=== PATIENT | female | born 1970 | race Caucasian/White ===

== ENCOUNTER → 2021-04-15 02:16 | Outpatient (CLI) | payer BC, SELFPAY ==
[2021-04-16 14:39] LABS: SARS-CoV-2 RNA PCR Negative
== END ==
PROVIDERS: PCP Family Medicine; Visit Provider Podiatrist Foot & Ankle Surgery
DX: Z01.812 Encounter for preprocedural laboratory examination (principal); Z20.822 Contact with and (suspected) exposure to COVID-19
CPT/HCPCS: C9803; U0003; U0005

== ENCOUNTER 2021-04-18 02:08 | Day surgery (SDC) | payer BC, SELFPAY ==
[2021-04-10 08:12] VITALS: BMI 29.8
[2021-04-18] VITALS (8 sets, daily range): BP systolic 89–120; BP diastolic 62–87; PULSE 48–80; RESP 8–17; TEMP 36.2–36.9; O2SAT 98–100; BMI 30.3
--- NOTE | 2021-04-18 06:42 | WPDANESEPPF ---
Anes - Initial Pre Proc Eval Procedure: Operation Date: 04/18/21 07:30 Proposed Procedures p Partial Plantar Fasciectomy Right Foot - Warren Arguelles JR, MD Date/Time: 04/18/21 06:42 Surgeon: Warren Arguelels JR, MD Pre Op Diagnosis: plantar fascitis right foot Patient Data Age: 50 Gender: F Height: 1.5 m Weight: 68.2 kg Allergies Allergy/AdvReac Type Severity Reaction Status Date / Time latex Allergy Redness of Verified 04/18/21 06:19 Skin penicillin G Allergy Anaphylaxis Verified 04/18/21 06:19 Home Medications Medication Instructions Recorded Confirmed Type ascorbate calcium (vitamin C) 1,000 mg PO DAILY 04/10/21 04/18/21 History biotin 1,000 mcg PO DAILY 04/10/21 04/18/21 History cholecalciferol (vitamin D3) 25 mcg PO DAILY 04/10/21 04/18/21 History cyanocobalamin (vitamin B-12) 1,000 mcg PO DAILY 04/10/21 04/18/21 History Patient hx anesthesia problems: post op nausea/vomiting Family hx anesthesia problems: none [facility] Past Medical History Medical History (Updated 04/18/21 @ 06:43 by Francis Kumar MD) Obesity Surgical History Surgical History (Updated 04/18/21 @ 06:43 by Francis Kumar MD) History of section Social History Social History Smoking status: Never smoker Alcohol intake: current Drinks per week: 2 Substance use: never Living arrangements: with family Additional living arrangements comments: [facility] Spiritual care concerns: No Anes - Eval Final PreProcedure Day of Procedure 04/18/21 06:42 Patient weight: obese Heart: regular rate and rhythm Lungs: clear to auscultation Airway: Mallampati scale class 1 Neurological: alert and oriented Last oral intake: >/= 8 hours ASA classification: II Emergent: no Anesthetic plan: proceed Anesthesia type and monitoring: general LMA and standard monitoring Informed Consent: The patient's anesthetic plan and its attendant risks and benefits were discussed with the patient/family/POA. Questions were solicited and answers provided to the satisfaction of the patient/family/POA.
[2021-04-18] MEDS: LACTATED RINGERS 1,000 ML 30 ML IV CONT (06:59)
[2021-04-18] MEDS: SCOPOLAMINE 1.5 MG PATCH TRANSDERM (07:02)
--- NOTE | 2021-04-18 07:21 | WPDHPUPDATE1 ---
History and Physical Update Update Date/Time: 04/18/21 07:21 History and Physical has been reviewed, including an updated exam of the patient. There are NO changes in the patient's condition. Risks, benefits, and alternatives have been discussed and questions answered. Patient agrees to proceed with procedure.
[2021-04-18] MEDS: CLINDAMYCIN 900 MG/D5W 50 ML 900 MG/50 ML PIGGYBACK 50 MG IVPB (07:30)
[2021-04-18] MEDS: LIDOCAINE HCL 2% LOCAL INJ 20 ML VIAL 10 ML INFILTRATE (07:58)
--- NOTE | 2021-04-18 08:26 | P.OP_ITS ---
Procedure Note - Detailed Date of Procedure 04/18/21 Pre-op Diagnosis plantar fascitis right foot Post-op Diagnosis same Procedure Performed Partial plantar faciectomy right foot Surgeon Warren Arguelles JR, AUDIEM Anesthesia general and local Indications Chronic recalcitrant inferior right heel pain Description of Procedure Under mild sedation, the patient was brought in to the operating room, placed on the operating table in the supine position. A pneumatic ankle tourniquet was placed about the patient's ankle. Following general anesthesia, local anesthesia was obtained about the affected lower extremity utilizing 20 mL of a one to mix of 2% Lidocaine plain and 0.5% Marcaine plain to the tibial nerve. The foot was then scrubbed, prepped, and draped in the usual aseptic manner. An Esmarch bandage was then used to exsanguinate the patient's foot and the pneumatic ankle tourniquet was then inflated. Next, an incision was made starting distal to the medial tubercle of the calcaneus extending distally 3cm. All bleeders were cauterized as necessary. Next the dissection was continued down to the plantar fascia it was exposed medially and laterally with [place] retractors. Two thirds of the medial plantar fascia was transected and a 4mm portion was also cut and discarded. The wound site was flushed with sterile saline. The deep subcutaneous tissue was reapproximated with 3.0 Vicryl and the skin was reapproximated with 2.0 Prolene and 3.0 Prolene in Vertical mattress and Simple interrupted suture technique. Upon completion of the procedure, the plantar incision was dressed with adaptic, 4x4 gauze, kerlix and coban. The pneumatic ankle tourniquet was then deflated and a prompt hyperemic response was noted to all digits of the affected foot. A CAM Walker boot was then applied. The patient did very well with the procedure and the anesthesia. The patient was transferred to the recovery room with vital signs stable and vascular status intact to all toes of the affected foot. Following a period of postoperative monitoring, the patient will be discharged home on the following written and oral postoperative instructions: 1. The patient should keep the dressing clean, dry, and intact. Use a cast protector bag with showers. 2. The patient will be strictly protected weight bearing with CAM walker boot. 3. Patient should ice and elevate the affected foot when at rest. 4. The patient is to contact Dr. Arguelles for all postop care and if any problems arise. 5. Prescriptions were written for Percocet 5/325 dispensed 40 to be taken 1 p.o. q.4-6 hours as needed for severe pain. Estimated Blood Loss -1.0
[2021-04-18 09:24] LABS: Glucose Point of Care 85 mg/dl (65-105)
--- NOTE | 2021-04-18 10:13 | SUR.PHASEII ---
Patient is to take 325mg aspirin daily for 2 weeks starting tomorrow instead of the xarelto per Dr. Arguelles.
== END 2021-04-18 10:02 | disposition home or self-care (01) ==
PROVIDERS: PCP Family Medicine; Visit Provider Podiatrist Foot & Ankle Surgery
PROC: (CPT 28119; principal; 2021-04-18 07:30)
DX: M72.2 Plantar fascial fibromatosis (principal); M25.571 Pain in right ankle and joints of right foot; E66.9 Obesity, unspecified; Z68.30 Body mass index [BMI] 30.0-30.9, adult
CPT/HCPCS: 28060; 82948; A9270; C9290; J1100; J1200; J2250; J2405; J2704; J3010; J7120

== ENCOUNTER 2025-09-27 08:40 | Emergency (ER) | payer OTHER, SELFPAY ==
--- NOTE | 2025-09-27 08:45 | ED.FEMALEGU ---
HPI - Female Genitourinary General Chief complaint: Urogenital-Female Stated complaint: UTI Time Seen by Provider: 09/27/25 08:45 Source: patient Mode of arrival: ambulatory Limitations: no limitations History of Present Illness HPI Narrative: patient is a 55-year-old female who presents with frequency and burning with urination for 4 days. Has been drinking increased amount of water and cranberry juice. Patient has also been taking azo. Denies any fever, chills, nausea, vomiting, diarrhea, low back pain MD elicited complaint: dysuria Related Data Home Medications ?Medication ?Instructions ?Recorded ?Confirmed ?Last Taken ?Type ascorbate calcium (vitamin C) 500 1,000 mg PO DAILY 04/10/21 04/18/21 04/15/21 History mg capsule biotin 1,000 mcg chewable tablet 1,000 mcg PO DAILY 04/10/21 04/18/21 04/15/21 History cholecalciferol (vitamin D3) 25 25 mcg PO DAILY 04/10/21 04/18/21 04/15/21 History mcg (1,000 unit) chewable tablet cyanocobalamin (vitamin B-12) 500 1,000 mcg PO DAILY 04/10/21 04/18/21 04/15/21 History mcg chewable tablet Allergies Allergy/AdvReac Type Severity Reaction Status Date / Time latex Allergy Redness of Verified 04/18/21 06:19 Skin penicillin G Allergy Anaphylaxis Verified 04/18/21 06:19 Review of Systems Review of Systems: All systems reviewed & are unremarkable except as noted in HPI and below Constitutional: Constitutional: Denies chills, Denies fever(s), Denies headache(s), Denies malaise and Denies weakness Eyes: Eyes: Denies change in vision, Denies eye discharge and Denies irritation ENT: Denies otalgia, Denies headache(s), Denies nasal congestion, Denies nasal discharge, Denies sinus pain and Denies sore throat Cardiovascular: Cardiovascular: Denies chest pain, Denies edema, Denies palpitations and Denies dyspnea Respiratory: Respiratory: Denies cough and Denies dyspnea Gastrointestinal: Gastrointestinal: Denies abdominal pain, Denies diarrhea, Denies nausea and Denies vomiting Genitourinary: Genitourinary: Denies hematuria, Reports nocturia, Reports dysuria and Denies flank pain Musculoskeletal: Musculoskeletal: Denies back pain and Denies numbness Integumentary/Breasts: Skin/Breast: Denies pruritus and Denies rash Neurologic: Denies headache(s), Denies numbness and Denies weakness Psychiatric: Psychiatric: Reports no additional psychiatric complaints Endocrine: Endocrine: Denies palpitations PMFSH Past Medical History Medical History Obesity Surgical History Surgical History History of section Social History Social History Smoking status: Never smoker Alcohol intake: current Drinks per week: 2 Substance use: never Living arrangements: with family [facility] Spiritual care concerns: No Comments At time of signature, agree with nursing past medical, surgical, social and family history. There is no relevant family history pertinent to the presenting complaint. Exam Const: General: cooperative, healthy appearing, comfortable, no acute distress and well nourished Nutritional Appearance: well nourished Orientation/consciousness: patient oriented x3 HENMT: Head: normocephalic and atraumatic Ears: external ears normal Face/Nose/Sinus: Normal external nose present, Normal nares present and normal facial exam Face and sinus: normal facial exam Eyes: General: appearance normal, both eyes and all related structures Pupils: Equal, round and reactive pupils present EOM: EOMs intact bilaterally Neck: Neck: normal visual inspection, full ROM and supple Chest: Chest palpation & inspection: normal inspection of the chest Resp: Effort & Inspection: normal respiratory effort and able to speak in complete sentences Cardio: Rate: regular rate Rhythm: regular rhythm GI: Inspection: normal to inspection GI Palp: No abdominal tenderness and Yes Soft to palpation : General: Yes no CVA tenderness Back/Spine/Pelvis: Back: no CVA tenderness Skin: General skin exam: normal color and no rashes or lesions noted Neuro: General: patient oriented x3 and moves all extremities Cranial nerves: Yes Equal, round and reactive pupils present Extrem: General: normal to inspection and full ROM Psych: Appearance: grossly normal and well kempt Course Course Emergency Course: Patient is aware of diagnosis, understands and agrees to treatment plan. Anticipatory guidance given. Patient agrees to follow-up as directed and is aware of reasons to seek care at the emergency department. Portions of this record may have been created with voice recognition software Level of Care: Express Care Visit MDM MDM Narrative Medical decision making narrative: Based on symptoms, patient will be treated with antibiotics. Urine culture sent, unable to do POC testing due to AZo use Pt well hydrated appearing, in no respiratory distress, hemodynamically stable. Recommend supportive care. The patient is stable at time of discharge the clinical impression was discussed and the patient was given the opportunity to ask questions, which were addressed as completely as possible given the information available at present. Anticipatory guidance and return to care precautions were discussed and the importance of primary care follow-up was stressed and encouraged. The patient voiced understanding of the plan, indications to return, and the need for follow-up. Exam findings show no acute concerns or changes Patient is appropriate for outpatient treatment and follow-up. Differential Diagnosis Differential Diagnosis: Differential diagnostic considerations for female urogenital? issues include urinary tract infection, bacterial vaginosis, cervicitis, ovarian cyst, vaginitis, STI exposure, ovarian torsion, ectopic , cyst of Bartholin?s gland, cystitis, dysmenorrhea.?? Medical Records I have reviewed the following patient records and this information was taken into consideration when formulating the assessment and plan.: previous clinic visits Discharge Plan Discharge Clinical Impression: UTI (urinary tract infection) Patient Disposition: Home Condition: Stable Instructions: Urinary Tract Infection in Women (ED) Additional Instructions: We will send a urine culture to the lab, based on your symptoms and urine dip we will start treatment today. If culture comes back and bacteria is not susceptible to antibiotic, your prescription may change. Your symptoms should improve within a day of starting antibiotics, but you should finish all the antibiotic pills you get. Otherwise your infection might come back Continue with increased water intake. Take Tylenol or ibuprofen as needed for pain or fever. Follow-up with primary care provider for urine recheck or see ER visit if condition worsens with high fever, nausea, vomiting, severe back pain Patient Language: Pashto Prescriptions: New sulfamethoxazole-trimethoprim 800-160 mg tablet 1 tablet PO Q12H 3 Days Qty: 6 0RF No Action ascorbate calcium (vitamin C) 500 mg Capsule 1,000 mg PO DAILY cholecalciferol (vitamin D3) 25 mcg (1,000 unit) Tablet,Chewable 25 mcg PO DAILY biotin 1,000 mcg Tablet,Chewable 1,000 mcg PO DAILY cyanocobalamin (vitamin B-12) 500 mcg Tablet,Chewable 1,000 mcg PO DAILY Follow-up/Referrals: Dariusz Ma MD [Primary Care Provider, [facility]] - 3 Days Time of Disposition: 09:11
[2025-09-27 08:48] VITALS: BP 138/86; PULSE 84; RESP 18; TEMP 36.2; O2SAT 99
--- OUTSIDE RECORDS SUMMARY | 2025-09-27 08:58 | XMS_ITS | Clinical Summary ---
Author Organization [facility] [employer] Address [address] [place] [address] Care Team Providers Care Employment Supervisor Name Role Phone Unavailable Primary Care Provider Unavailabl e Source Comments [facility] [employer],non-owned Affiliates and Associated Physician Practices is amultiple site organization consisting of ambulatory clinics and hospital sitesin [place], [place], [place] and [place]. This disclosure is being madepursuant to the Care Everywhere program and may not contain all information available regarding this patient. Last updated 18.[facility] [employer] Allergies Active Allergy Reactions Criticality Noted Date Comments Penicillins Anaphylaxis High 05/09/2019 Medications * Be aware that medications may not be up to date on this document. Alwaysverify current medications with the patient. azithromycin (ZITHROMAX) 250 MG tablet Take 2 tabs today, then 1 tab daily for next 4 days 6 tablet 9 Active Additional Information Patient not taking.Reported on 09/24/2020 Family History Medical History Relation Name Comments CAD (Coronary Artery Disease) Father [place], CABG Relation Name Status Comments Father Alive Social History Tobacco Use Types Packs/Day Years Used Date Smoking Tobacco: Never Smokeless Tobacco: Never Alcohol Use Standard Drinks/Week Comments No 0 (1 standard drink = 0.6 oz pur e alcohol) Comments No Sex and Gender Information Value Date Recorded Sex Assigned at Not on file Legal Sex Female 6:33 AM CDT Gender Identity Not on file Sexual Orientation Not on file Last Filed Vital Signs Vital Sign Reading Time Taken Comments Blood Pressure 110/62 09/24/2020 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 Pulse 88 09/24/2020 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 Temperature 36.5 C (97.7 F) 09/24/2020 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 Respiratory Rate 16 09/24/2020 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 Oxygen Saturation 98% 09/24/2020 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 Inhaled Oxygen Concentration - - Weight 67.1 kg (148 lb) 09/24/2020 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 Height 149.9 cm (4' 11) 09/24/2020 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 Body Mass Index 29.89 09/24/2020 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 Plan of Treatment Health Maintenance Due Date Last Done Comments COLOGUARD (AGES 45-75) - COL ON CA SCREENING 1970 COLON MONITORING 1970 COLONOSCOPY - COLON CA SCREENING 1970 CT COLONOGRAPHY - COLON CA SCREENING 1970 Colorectal Cancer Screening 1970 FIT - COLON CA SCREENING 1970 FLEX SIG - COLON CA SCREENING 1970 LIPID TESTING 1970 MAMMOGRAM 1970 HIV SCREENING 1985 HEPATITIS C SCREENING 08/18/1988 DTAP/TDAP/TD VACCINES (1 - Tdap) 1989 HEPATITIS B VACCINE (1 of 3 - 19+ 3-dose series) 1989 PNEUMOCOCCAL VACCINE 50+ (1 of 1 - PCV) 2020 ZOSTER VACCINE (1 of 2) 2020 SCREENING FOR DIABETES 09/24/2020 DEPRESSION SCREENING 10/25/2024 COVID-19 VACCINE (1 - 2024-2 6 season) 2025 INFLUENZA VACCINE (#1) 2025 HIB VACCINE Aged Out No longer eligi ble based on patient's age to complete this topic HPV VACCINE Aged Out No longer eligi ble based on patient's age to complete this topic MENINGOCOCCAL (Group B) VACC INE SHARED DECISION-MAKING Aged Out No longer eligibl e based on patient's age to complete this topic MENINGOCOCCAL GROUPS A/C/Y/W VACCINE Aged Out No longer eligible b ased on patient's age to complete this topic Insurance ANTHEM Advance Directives Documents on File Type Date Recorded Patient Advisory Internship Expl anation Adv Directive/Living Will/POA 03/11/2017
== END 2025-09-27 09:17 | disposition home or self-care (01) ==
PROVIDERS: Emergency Provider Nurse Practitioner Family; PCP Family Medicine
DX: N39.0 Urinary tract infection, site not specified (principal); E66.9 Obesity, unspecified; Z68.33 Body mass index [BMI] 33.0-33.9, adult
CPT/HCPCS: 87086; 87186; 99213; G0463